=== PATIENT | female | born 2000 | race Caucasian/White ===

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

== ENCOUNTER 2019-05-02 17:15 | Emergency (ER) | payer OTHER ==
[~2019-05-02] VITALS: Ht 167.6 cm; Wt 143.8 kg
[2019-05-02 17:40] VITALS: Ht 167.6 cm; Wt 143.8 kg
[2019-05-02 21:01] VITALS: BP 133/81
== END 2019-05-02 21:01 | disposition home or self-care (01) ==
LOC: ED 17:15
DX: J06.9 Acute upper respiratory infection, unspecified (principal); H92.02 Otalgia, left ear; Z90.49 Acquired absence of other specified parts of digestive tract
CPT/HCPCS: 87804